=== PATIENT | male | born 1980 | race Caucasian/White ===

== ENCOUNTER 2019-08-04 05:15 | Inpatient (IN) | payer MEDICAID ==
[2019-08-04] VITALS (9 sets, daily range): BP systolic 114–139; BP diastolic 79–102
[~2019-08-04] VITALS: Ht 167.6 cm; Wt 110.1 kg
[2019-08-04] MEDS ORDERED: normal saline 1000ML IV soln IVB ONE ×2 (05:25→06:50)
[2019-08-04] MEDS ORDERED: magnesium 2GM in 50ml NS 50 ML IV ONE (05:30)
[2019-08-04] MEDS ORDERED: diltiazem 5mg/ml 5ml inj. IV ONE ×2 (05:30→05:50)
[2019-08-04] MEDS ORDERED: diltiazem 30mg tablet PO ONE ×2 (05:30→05:50)
[2019-08-04] MEDS ORDERED: LORazepam 2 mg/ml vial IV ONE (05:45)
[2019-08-04] MEDS ORDERED: cloNIDine 0.1 mg tablet PO ONE (05:50)
[2019-08-04 06:03] LABS: BASOPHILS # (AUTO) 0.2 X10'3 (0-0.2); BASOPHILS % (AUTO) 0.9 % (0-1); EOSINOPHILS # (AUTO) 0.4 X10'3 (0-0.9); EOSINOPHILS % (AUTO) 2.2 % (0-6); HEMATOCRIT 47.5 % (42.0-52.0); HEMOGLOBIN 15.9 g/dl (14.0-17.9); LYMPHOCYTES # (AUTO) 3.8 X10'3 (1.1-4.8); LYMPHOCYTES % (AUTO) 19.7 % (21-51); MEAN CORPUSCULAR HEMOGLOBIN 29.6 PG (27.0-31.0); MEAN CORPUSCULAR HGB CONC 33.4 g/dL (33.0-36.5); MEAN CORPUSCULAR VOLUME 88.6 FL (78-98); MEAN PLATELET VOLUME 9.7 FL (7.4-10.4); MONOCYTES # (AUTO) 0.9 X10'3 (0-0.9); MONOCYTES % (AUTO) 4.8 % (2-12); NEUTROPHILS # (AUTO) 13.8 X10'3 (1.8-7.7); NEUTROPHILS % (AUTO) 72.4 % (42-75); PLATELET COUNT 411 X10'3 (140-440); RED BLOOD COUNT 5.37 X10'6 (4.70-6.10); RED CELL DISTRIBUTION WIDTH 13.9 % (11.5-14.5); WHITE BLOOD COUNT 19.1 X10'3 (4.5-11.0)
[2019-08-04 06:22] LABS: URINE AMPHETAMINE SCREEN NEGATIVE (Neg); URINE BARBITUATE SCREEN NEGATIVE (Neg); URINE BENZODIAZEPINES SCREEN NEGATIVE (Neg); URINE CANNABINOID SCREEN POSITIVE (Neg); URINE COCAINE SCREEN NEGATIVE (Neg); URINE METHADONE SCREEN NEGATIVE (Neg); URINE OPIATE SCREEN NEGATIVE (Neg); URINE PHENCYCLIDINE SCREEN NEGATIVE (Neg)
[2019-08-04 06:42] LABS: ALANINE AMINOTRANSFERASE 18 U/L (12-78); ALBUMIN/GLOBULIN RATIO 0.7 (1.1-1.5); ALKALINE PHOSPHATASE 146 IU/L (46-116); ANION GAP 12 (8-16); ASPARTATE AMINO TRANSFERASE 11 U/L (10-37); BILIRUBIN,TOTAL 0.6 MG/DL (0.1-1.0); BLOOD UREA NITROGEN 27 MG/DL (7-18); BUN/CREATININE RATIO 8.5 (5.4-32.0); CALCIUM 8.2 MG/DL (8.5-10.1); CHLORIDE 109 MMOL/L (99-107); CREATININE 3.18 MG/DL (0.60-1.10); GLUCOSE 113 MG/DL (70-104); POTASSIUM 4.4 MMOL/L (3.5-5.1); SODIUM 139 MMOL/L (135-145); TOTAL CARBON DIOXIDE 18.4 MMOL/L (24-32); TOTAL PROTEIN 7.3 G/DL (6.4-8.2); eGFR 22 ML/MIN
[2019-08-04 06:51] LABS: MAGNESIUM 1.8 MG/DL (1.5-2.4)
[2019-08-04] MEDS: piperacillin/tazo 3.375gm/50ml 50 ML IV SCH ×2 (07:06→08:47)
[2019-08-04] MEDS ORDERED: normal saline 1000ML IV soln IV ONE (07:10)
[2019-08-04 08:09] LABS: LIPASE 429 U/L (73-393)
[2019-08-04 09:33] LABS: ETHANOL < 0.010 GM/DL (0.0-0.010)
[2019-08-04] MEDS: normal saline 1000ml 1,000 ML IV SCH ×2 (10:16→20:15)
[2019-08-04] MEDS ORDERED: morphine 2 MG/ML inj. syringe IV PRN (10:20)
[2019-08-04] MEDS ORDERED: magnesium 2GM in 50ml NS 50 ML IV PRN (10:20)
[2019-08-04] MEDS ORDERED: magnesium Cl slow-release 64mg tablet PO PRN (10:20)
[2019-08-04] MEDS ORDERED: magnesium 4gm in 100ml NS 100 ML IV PRN (10:20)
[2019-08-04] MEDS ORDERED: ondansetron/PF 4mg/2ml inj IV PRN (10:20)
[2019-08-04] MEDS ORDERED: potassium Cl 20 mEq SR tablet PO PRN ×2 (10:20)
[2019-08-04] MEDS ORDERED: potassium CL 10mEq/100ml bag 100 ML IV PRN ×2 (10:20)
--- NOTE | 2019-08-04 11:36 | NUR ---
Received patient report from ELVIS Cintron in ER.
--- NOTE | 2019-08-04 11:45 | NUR ---
Patient arrived on unit via gurney. Pt was able to ambulate ad soren to bed. Patient alert and oriented, able to communicate needs, cooperative with care. Denies pain at this time. Vital signs BP 138/104, HR 96, Temp 98.7, SP02 98% on RA. Patient oriented to room and call light. Tele monitor placed. NS at 100ml/hr running per MD order.
[2019-08-04] MEDS ORDERED: HYDR-4069 PO (12:54)
[2019-08-04] MEDS ORDERED: pantoprazole 40 MG vial IV SCH (13:40)
[2019-08-04] MEDS ORDERED: dextrose 50%-water 50ml dispensing syringe IV PRN ×2 (14:20)
[2019-08-04] MEDS: pantoprazole 40 MG vial IV SCH ×2 (14:20→20:10)
[2019-08-04] MEDS ORDERED: MESSAGE TO PHARMACY PO ONE (14:20)
[2019-08-04] MEDS ORDERED: glucagon, human recombinant 1mg kit SUBCUT PRN (14:20)
[2019-08-04] MEDS ORDERED: dextrose ORAL solution 15 GM/59 ML bottle PO PRN ×2 (14:20)
[2019-08-04] MEDS ORDERED: insulin Lispro (HumaLOG) vial - multi-dose SQ SCH (14:20)
--- NOTE | 2019-08-04 14:30 | NUR ---
Per Kris Bill Of Materials Clerk, page sent to Dr. Avalos requesting lipid panel. PAGER ID: [phone] MESSAGE: re [phone] Franko Aviles- Per canceling and cutting control clerk, can lipid panel be ordered for tomorrow? Thanks, Judy x [phone]
[2019-08-04] MEDS: levoFLOXACIN-Levaquin 500mg/D5 100 ML IV SCH (14:38)
--- NOTE | 2019-08-04 14:41 | NUR ---
Malnutrition consult: Pt admit w/ acute pancreatitis hx meth abuse. Pt physical assessment pending, current wt pt stated, no wt hx first admit, and NPO given DX. Nausea/abdominal pain persists per EMR. Lipase slightly elevated; ALFREDO d/w RN regarding lipid panel if MD agreeable given hx and stated wt. Current BMI 39.6 via pt stated wt. Not enough information at this time to determine malnutrition criteria; will monitor for additional malnutrition criteria this admit. Will monitor for PO diet advancement as tolerance as medically indicated. Rec: 1. advance diet as medically indicated to low fat/heart healthy 2. monitor for ONS needs once PO 3. bowel care as needed 4. check lipids if MD agreeable given DX 5. scaled wts Addendum: 08/04/19 at [address] Amended: Links added.
[2019-08-04 15:39] LABS: HEMOGLOBIN A1C 5.5 % (4.5-6.2)
[2019-08-04] MEDS: ipratropium/albuterol 3ml nebule NEB SCH ×2 (15:56→19:47)
[2019-08-04] MEDS ORDERED: OMEP-50 PO (16:55)
[2019-08-04] MEDS ORDERED: NIFE30TA95 PO (16:55)
--- NOTE | 2019-08-04 18:12 | NUR ---
Orientee documentation: I have reviewed and agree with all interventions, assessments performed and documented by ELVIS Abel.
--- NOTE | 2019-08-04 18:43 | NUR ---
Problems reprioritized. Patient report given, questions answered & plan of care reviewed with Abigail RN.
[2019-08-04] MEDS: K and/or MAG REPLACEMENT MC SCH (20:00)
[2019-08-04] MEDS: hydrALAZINE 20mg/ml inj. IV SCH (20:07)
[2019-08-04] MEDS: heparin, porcine 5000 units/ml vial SQ SCH (20:18)
[2019-08-04] MEDS ORDERED: diltiazem-D5W 125mg/125ml 125 ML IV SCH (20:50)
[2019-08-04] MEDS ORDERED: diltiazem-NS 100mg/100ml 100 ML IV SCH (20:55)
[2019-08-04] MEDS: insulin glargine (Lantus) pen - multi-dose SQ SCH (21:22)
[2019-08-05] VITALS (15 sets, daily range): BP systolic 101–173; BP diastolic 59–113
[2019-08-05] MEDS: normal saline 1000ml 1,000 ML IV SCH ×4 (01:00→20:33)
[2019-08-05] MEDS: hydrALAZINE 20mg/ml inj. IV SCH ×3 (02:35→14:37)
[2019-08-05] MEDS: diltiazem-NS 100mg/100ml 100 ML IV SCH ×3 (03:00→19:13)
--- NOTE | 2019-08-05 03:00 | NUR ---
DR SILVERMAN CALLED DUE TO PATIENTS HEART RATE MAINTAINING BETWEEN 140 AND 180. NEW ORDER TO INCREASE CARD GTT FROM 5 TO 10.
[2019-08-05 05:37] LABS: BASOPHILS # (AUTO) 0.1 X10'3 (0-0.2); BASOPHILS % (AUTO) 1.2 % (0-1); EOSINOPHILS # (AUTO) 0.1 X10'3 (0-0.9); EOSINOPHILS % (AUTO) 1.3 % (0-6); HEMATOCRIT 44.3 % (42.0-52.0); HEMOGLOBIN 14.8 g/dl (14.0-17.9); LYMPHOCYTES # (AUTO) 2.3 X10'3 (1.1-4.8); LYMPHOCYTES % (AUTO) 22.3 % (21-51); MEAN CORPUSCULAR HEMOGLOBIN 29.4 PG (27.0-31.0); MEAN CORPUSCULAR HGB CONC 33.4 g/dL (33.0-36.5); MEAN CORPUSCULAR VOLUME 88.1 FL (78-98); MEAN PLATELET VOLUME 9.5 FL (7.4-10.4); MONOCYTES # (AUTO) 0.5 X10'3 (0-0.9); MONOCYTES % (AUTO) 4.3 % (2-12); NEUTROPHILS # (AUTO) 7.4 X10'3 (1.8-7.7); NEUTROPHILS % (AUTO) 70.9 % (42-75); PLATELET COUNT 368 X10'3 (140-440); RED BLOOD COUNT 5.03 X10'6 (4.70-6.10); RED CELL DISTRIBUTION WIDTH 14.1 % (11.5-14.5); WHITE BLOOD COUNT 10.5 X10'3 (4.5-11.0)
[2019-08-05 05:48] LABS: ALBUMIN 2.6 G/DL (3.4-5.0); ANION GAP 12 (8-16); BLOOD UREA NITROGEN 23 MG/DL (7-18); BUN/CREATININE RATIO 7.3 (5.4-32.0); CALCIUM 8.2 MG/DL (8.5-10.1); CHLORIDE 114 MMOL/L (99-107); CREATININE 3.13 MG/DL (0.60-1.10); GLUCOSE 101 MG/DL (70-104); LIPASE 150 U/L (73-393); MAGNESIUM 1.7 MG/DL (1.5-2.4); POTASSIUM 4.5 MMOL/L (3.5-5.1); SODIUM 143 MMOL/L (135-145); TOTAL CARBON DIOXIDE 17.2 MMOL/L (24-32); eGFR 22 ML/MIN
--- NOTE | 2019-08-05 06:56 | NUR ---
Patient in room PCU 3018. I have received report from Abigail RN and had the opportunity to ask questions and assume patient care. Pt's hr trends are in the 130's-140's. Pt. is asymptomatic. Will notify
[2019-08-05] MEDS: ipratropium/albuterol 3ml nebule NEB SCH ×3 (07:06→20:10)
--- NOTE | 2019-08-05 07:21 | NUR ---
PAGER ID: [phone] MESSAGE: [phone] Franko Shea - Assumed care of patient, HR 150's throughout night. HR 150's-160's. Krissy LEAL [phone]
[2019-08-05] MEDS ORDERED: LORazepam 2 mg/ml vial IV ONE (07:30)
--- NOTE | 2019-08-05 07:30 | NUR ---
Received return call from Dr. Avalos, ordering Ativan 1 mg of Ativan one time. Verified twice and reviewed rhythms over the phone. She again stated to administer Ativan 1 mg po one time.
[2019-08-05] MEDS: levoFLOXACIN-Levaquin 500mg/D5 100 ML IV SCH ×2 (07:42→07:50)
[2019-08-05] MEDS: pantoprazole 40 MG vial IV SCH ×2 (07:42→20:24)
[2019-08-05] MEDS: K and/or MAG REPLACEMENT MC SCH ×2 (08:00→20:00)
--- NOTE | 2019-08-05 08:10 | NUR ---
PAGER ID: [phone] MESSAGE: [id number] Alonzo Chavez - Kathy given, HR still trending 150-170's. Would you like to increase Cardizem? Or do an IV push? Krissy LEAL [phone]
--- NOTE | 2019-08-05 08:24 | NUR ---
No return call from Dr. Avalos thus far, HR is not sustaining and he is asymptomatic but it should certainly be addressed. Will page again or potentially call a rapid. Charge nurse/telemetry rn also monitoring patient closely.
[2019-08-05] MEDS ORDERED: metoprolol tartrate 1mg/ml inj IV ONE ×2 (08:30→13:05)
--- NOTE | 2019-08-05 08:31 | NUR ---
Received return phone call from Dr. rajput, she stated because he is sinus tach, we just need to treat the cause. BP and HR including sometimes into the 200's was explained. Received a one time order to administer metoprolol 5 mg IVP.
[2019-08-05] MEDS: heparin, porcine 5000 units/ml vial SQ SCH ×2 (08:44→20:24)
--- NOTE | 2019-08-05 08:47 | NUR ---
IVP metoprolol given, HR trending 115-130's. EKG completed, ST noted. Will continue to monitor closely.
--- NOTE | 2019-08-05 11:15 | NUR ---
MD assessed patient and reviewed rhythm strip. She ordered another STAT EKG.
--- NOTE | 2019-08-05 11:42 | NUR ---
PAGER ID: [phone] MESSAGE: [id number] Franko Shea - BAYG completed. I did not find you in the hospitalist room. Call Krissy LEAL [phone]
--- NOTE | 2019-08-05 12:51 | NUR ---
Dr. Avalos returned call, stated she has to attend a conference. Explained change in rhythm to a-flutter and rate. stated, if HR >130, give another dose of metoprolol 5 mg IV one time. HR is 140's at this time.
--- NOTE | 2019-08-05 13:20 | NUR ---
Another dose of Metoprolol 5 mg IV one time administered. Will continue to monitor patient closely. Pt. stated, "I feel good."
--- NOTE | 2019-08-05 14:49 | NUR ---
Patient is resting comfortably, rate is better controlled. BP currently 125/74. Offers no complaints.
--- NOTE | 2019-08-05 15:15 | NUR ---
EKG reviewed by Dr. Avalos, new orders noted to DC hydralazine. Administer Metoprolol 25 mg po one time now and place order for metoprolol 5 mg IVP q 6 hrs PRN for HR>120.
[2019-08-05] MEDS ORDERED: metoprolol succinate 25mg (24-HOUR) SR. Tablet PO ONE (16:00)
--- NOTE | 2019-08-05 16:02 | NUR ---
PAGER ID: [phone] MESSAGE: [phone] Alonzonadia bautistaj luis, HR trending up again into 150-160's. PO metoprolol given as ordered. IV metoprolol last given at 1300. BRONSON Rey RN [phone]
--- NOTE | 2019-08-05 17:20 | NUR ---
Dr. Avalos returned call stating she got the page and that we just need to continue to monitor him. HR is 120's currently. Pt. is texting on his phone and in no apparent distress. Will continue to monitor closely.
--- NOTE | 2019-08-05 18:25 | NUR ---
Problems reprioritized. Patient report given, questions answered & plan of care reviewed with Rosalia LEAL.
--- NOTE | 2019-08-05 18:25 | NUR ---
Agree with orientee documentation.
--- NOTE | 2019-08-05 18:30 | NUR ---
Patient in room PCU 3018. I have received report from Nitza, and had the opportunity to ask questions and assume patient care.
[2019-08-05] MEDS: lactobacillus rhamnosus 10,000 MMU CELLS/CAPSULE PO SCH (20:24)
[2019-08-05] MEDS: insulin glargine (Lantus) pen - multi-dose SQ SCH (21:00)
--- NOTE | 2019-08-05 23:15 | NUR ---
patient is resting comfortably. Not on any distress. Heart is fluctuating in 100's to 110. He is asymptomatic.
[2019-08-05] MEDS: metoprolol tartrate 1mg/ml inj IV PRN (23:44)
[2019-08-06 02:00] VITALS: BP 136/86
[2019-08-06] MEDS: normal saline 1000ml 1,000 ML IV SCH (03:21)
[2019-08-06] MEDS: diltiazem-NS 100mg/100ml 100 ML IV SCH ×3 (04:11→22:51)
[2019-08-06 05:20] LABS: BASOPHILS # (AUTO) 0.1 X10'3 (0-0.2); BASOPHILS % (AUTO) 1.2 % (0-1); EOSINOPHILS # (AUTO) 0.2 X10'3 (0-0.9); EOSINOPHILS % (AUTO) 1.9 % (0-6); HEMATOCRIT 43.3 % (42.0-52.0); HEMOGLOBIN 14.7 g/dl (14.0-17.9); LYMPHOCYTES # (AUTO) 2.4 X10'3 (1.1-4.8); LYMPHOCYTES % (AUTO) 25.8 % (21-51); MEAN CORPUSCULAR HEMOGLOBIN 30.2 PG (27.0-31.0); MEAN CORPUSCULAR HGB CONC 33.9 g/dL (33.0-36.5); MEAN PLATELET VOLUME 9.8 FL (7.4-10.4); MONOCYTES # (AUTO) 0.4 X10'3 (0-0.9); MONOCYTES % (AUTO) 4.2 % (2-12); NEUTROPHILS # (AUTO) 6.1 X10'3 (1.8-7.7); NEUTROPHILS % (AUTO) 66.9 % (42-75); PLATELET COUNT 331 X10'3 (140-440); RED BLOOD COUNT 4.87 X10'6 (4.70-6.10); RED CELL DISTRIBUTION WIDTH 14.3 % (11.5-14.5); WHITE BLOOD COUNT 9.2 X10'3 (4.5-11.0)
[2019-08-06 05:56] LABS: ALBUMIN 2.5 G/DL (3.4-5.0); ANION GAP 11 (8-16); BLOOD UREA NITROGEN 26 MG/DL (7-18); BUN/CREATININE RATIO 8.2 (5.4-32.0); CALCIUM 8.4 MG/DL (8.5-10.1); CHLORIDE 110 MMOL/L (99-107); CREATININE 3.16 MG/DL (0.60-1.10); GLUCOSE 99 MG/DL (70-104); MAGNESIUM 1.6 MG/DL (1.5-2.4); POTASSIUM 4.6 MMOL/L (3.5-5.1); SODIUM 138 MMOL/L (135-145); TOTAL CARBON DIOXIDE 16.6 MMOL/L (24-32); eGFR 22 ML/MIN
--- NOTE | 2019-08-06 06:16 | NUR ---
Problems reprioritized. Patient report given YogeshRN, questions answered & plan of care reviewed with .
--- NOTE | 2019-08-06 06:40 | NUR ---
Patient in room PCU 3018. I have received report from ELVIS Cardoso and had the opportunity to ask questions and assume patient care. Patient awake in bed. No complaints at this time. All immediate needs met.
--- NOTE | 2019-08-06 06:43 | NUR ---
Patient in room PCU 3018. I have received report from Janae LEAL and had the opportunity to ask questions and assume patient care.
[2019-08-06 07:00] VITALS: BP 121/94
[2019-08-06] MEDS: pantoprazole 40 MG vial IV SCH (07:53)
[2019-08-06] MEDS: lactobacillus rhamnosus 10,000 MMU CELLS/CAPSULE PO SCH ×2 (07:54→19:55)
[2019-08-06] MEDS: heparin, porcine 5000 units/ml vial SQ SCH ×2 (07:54→19:55)
[2019-08-06] MEDS ORDERED: levoFLOXACIN-Levaquin 250mg/D5 100 ML IV SCH (08:00)
[2019-08-06] MEDS: K and/or MAG REPLACEMENT MC SCH ×2 (08:49→20:00)
[2019-08-06] MEDS: ipratropium/albuterol 3ml nebule NEB SCH ×3 (09:00→19:46)
[2019-08-06 11:00] VITALS: BP 127/90
--- NOTE | 2019-08-06 15:09 | NUR ---
Paged Dr. Avalos, Re: Shabbir Hodges, [id number]. Patient is experiencing some difficulty breathing. BP: 140/93, P: 103, O2:99%RA. May we have a prn for Atnxiety? Daniela RN [phone]
--- NOTE | 2019-08-06 15:37 | NUR ---
Dr. Avalos responded to page, with order of Ativan IV push 1MG Q6H prn for anxiety
[2019-08-06] MEDS ORDERED: metoprolol succinate 25mg (24-HOUR) SR. Tablet PO SCH (15:40)
[2019-08-06] MEDS: LORazepam 2 mg/ml vial IV PRN (15:46)
--- NOTE | 2019-08-06 17:41 | NUR ---
Patients BP and HR was 140/98, 130/85 with heart rates 103 to 140s. After patient received Ativan, patient went to sleep, BP 112/80, HR 87, O2 98%RA. Patient expressed anxiety due to environmental changes and health changes. Patient states that he takes anxiety medications to help with anxiety. also stated this as well.
--- NOTE | 2019-08-06 17:55 | NUR ---
Dr. Avalos responded to paged about medications. Order is to start Cardizem 30mg po on 08-06 0800, due to patients blood pressure events. Continue to monitor patients BP and HR
[2019-08-06 18:00] VITALS: BP 130/94
--- NOTE | 2019-08-06 18:12 | NUR ---
Problems reprioritized. Patient report given, questions answered & plan of care reviewed with Janae LEAL. Patient in stable condition with stable vital signs able to transfer care.
--- NOTE | 2019-08-06 18:15 | NUR ---
Problems reprioritized. Patient report given, questions answered & plan of care reviewed with Janae LEAL. Patient stable at transfer of care.
--- NOTE | 2019-08-06 18:16 | NUR ---
Orientee documentation: I have reviewed and agree with all interventions, assessments performed and documented by ELVIS Suarez. Orientee documentation: I have reviewed and agree with all interventions, assessments performed and documented by ELVIS Suarez.
--- NOTE | 2019-08-06 18:17 | NUR ---
Patient in room PCU 3018. I have received report from Daniela GONZALEZ, and had the opportunity to ask questions and assume patient care.
[2019-08-06] MEDS: pantoprazole 40mg Tablet.DR PO SCH (19:55)
[2019-08-06] MEDS ORDERED: diltiazem 30mg tablet PO SCH (20:00)
[2019-08-06] MEDS: insulin glargine (Lantus) pen - multi-dose SQ SCH (21:00)
[2019-08-06 22:00] VITALS: BP 120/88
[2019-08-07] VITALS (7 sets, daily range): BP systolic 112–139; BP diastolic 64–97
[2019-08-07] MEDS: LORazepam 2 mg/ml vial IV PRN (00:10)
--- NOTE | 2019-08-07 00:22 | NUR ---
Patient was restless and asked for his lorazipam (ativan). HR is in 100's to 110's. Asymptomatic.
[2019-08-07 05:31] LABS: BASOPHILS # (AUTO) 0.1 X10'3 (0-0.2); BASOPHILS % (AUTO) 1.1 % (0-1); EOSINOPHILS # (AUTO) 0.2 X10'3 (0-0.9); EOSINOPHILS % (AUTO) 2.2 % (0-6); HEMATOCRIT 45.2 % (42.0-52.0); LYMPHOCYTES # (AUTO) 2.5 X10'3 (1.1-4.8); LYMPHOCYTES % (AUTO) 22.8 % (21-51); MEAN CORPUSCULAR HEMOGLOBIN 29.6 PG (27.0-31.0); MEAN CORPUSCULAR HGB CONC 33.2 g/dL (33.0-36.5); MEAN CORPUSCULAR VOLUME 89.1 FL (78-98); MEAN PLATELET VOLUME 9.9 FL (7.4-10.4); MONOCYTES # (AUTO) 0.5 X10'3 (0-0.9); MONOCYTES % (AUTO) 4.5 % (2-12); NEUTROPHILS # (AUTO) 7.6 X10'3 (1.8-7.7); NEUTROPHILS % (AUTO) 69.4 % (42-75); PLATELET COUNT 406 X10'3 (140-440); RED BLOOD COUNT 5.08 X10'6 (4.70-6.10); RED CELL DISTRIBUTION WIDTH 14.2 % (11.5-14.5); WHITE BLOOD COUNT 10.9 X10'3 (4.5-11.0)
[2019-08-07 05:37] LABS: ALBUMIN 2.7 G/DL (3.4-5.0); ANION GAP 11 (8-16); BLOOD UREA NITROGEN 27 MG/DL (7-18); BUN/CREATININE RATIO 7.9 (5.4-32.0); CALCIUM 8.2 MG/DL (8.5-10.1); CHLORIDE 108 MMOL/L (99-107); GLUCOSE 94 MG/DL (70-104); MAGNESIUM 1.6 MG/DL (1.5-2.4); POTASSIUM 4.5 MMOL/L (3.5-5.1); SODIUM 137 MMOL/L (135-145); TOTAL CARBON DIOXIDE 18.2 MMOL/L (24-32); eGFR 20 ML/MIN
--- NOTE | 2019-08-07 06:00 | NUR ---
Patient in room PCU 3018. I have received report from Janae LEAL and had the opportunity to ask questions and assume patient care.
--- NOTE | 2019-08-07 06:23 | NUR ---
Patient report given to uJan A, questions answered & plan of care reviewed with .
[2019-08-07] MEDS: lactobacillus rhamnosus 10,000 MMU CELLS/CAPSULE PO SCH ×2 (07:25→19:15)
[2019-08-07] MEDS: pantoprazole 40mg Tablet.DR PO SCH ×2 (07:26→19:15)
[2019-08-07] MEDS: diltiazem 30mg tablet PO SCH ×3 (07:26→19:15)
[2019-08-07] MEDS: levoFLOXACIN 250mg tablet PO SCH (07:26)
[2019-08-07] MEDS: heparin, porcine 5000 units/ml vial SQ SCH ×2 (07:27→19:16)
[2019-08-07] MEDS: K and/or MAG REPLACEMENT MC SCH ×2 (07:33→19:25)
[2019-08-07] MEDS: ipratropium/albuterol 3ml nebule NEB SCH ×3 (08:19→20:17)
[2019-08-07] MEDS: metoprolol tartrate 1mg/ml inj IV PRN (08:55)
[2019-08-07] MEDS: diltiazem-NS 100mg/100ml 100 ML IV SCH ×2 (10:09→23:04)
--- NOTE | 2019-08-07 12:42 | NUR ---
Reassessment: Patient's diet has been advanced to CHO controlled and pt documented with 100% PO intake since advancement. D/w dietary to send double protein BID for satiety. Lipase from 08/04 WNL. Creatinine remains elevated, pt likely has medical renal disease per MD note. LBM 08/05 per I&O. Will continue to follow and make recommendations as appropriate. Rec: 1. diet change to low fat/heart healthy 2. double meat BIDLD 3. monitor renal labs and need for renal diet 4. bowel care as needed 5. check lipids if MD agreeable given DX 6. scaled wts Addendum: 08/07/19 at [address] Amended: Links added.
[2019-08-07] MEDS: metoprolol succinate 25mg (24-HOUR) SR. Tablet PO SCH (15:00)
[2019-08-07] MEDS: sodium bicarbonate (8.4%) inj. 75 MEQ in dextrose 5% water 500ml 500 ML IV SCH ×3 (17:22→23:38)
--- NOTE | 2019-08-07 18:15 | NUR ---
Patient in room PCU 3018. I have received report from ELVIS Uribe and had the opportunity to ask questions and assume patient care.
--- NOTE | 2019-08-07 18:48 | NUR ---
Problems reprioritized. Patient report given, questions answered & plan of care reviewed with Danitza LEAL.
[2019-08-07] MEDS: insulin glargine (Lantus) pen - multi-dose SQ SCH (21:00)
[2019-08-08] VITALS (10 sets, daily range): BP systolic 101–135; BP diastolic 74–98
[2019-08-08] MEDS: diltiazem 30mg tablet PO SCH (02:06)
[2019-08-08] MEDS: sodium bicarbonate (8.4%) inj. 75 MEQ in dextrose 5% water 500ml 500 ML IV SCH ×2 (04:23→09:39)
[2019-08-08 05:16] LABS: BASOPHILS # (AUTO) 0.2 X10'3 (0-0.2); BASOPHILS % (AUTO) 1.8 % (0-1); EOSINOPHILS # (AUTO) 0.2 X10'3 (0-0.9); EOSINOPHILS % (AUTO) 2.4 % (0-6); HEMATOCRIT 42.8 % (42.0-52.0); HEMOGLOBIN 14.5 g/dl (14.0-17.9); LYMPHOCYTES # (AUTO) 2.5 X10'3 (1.1-4.8); LYMPHOCYTES % (AUTO) 25.4 % (21-51); MEAN CORPUSCULAR HEMOGLOBIN 29.7 PG (27.0-31.0); MEAN CORPUSCULAR HGB CONC 33.9 g/dL (33.0-36.5); MEAN CORPUSCULAR VOLUME 87.7 FL (78-98); MEAN PLATELET VOLUME 9.6 FL (7.4-10.4); MONOCYTES # (AUTO) 0.6 X10'3 (0-0.9); MONOCYTES % (AUTO) 6.5 % (2-12); NEUTROPHILS # (AUTO) 6.2 X10'3 (1.8-7.7); NEUTROPHILS % (AUTO) 63.9 % (42-75); PLATELET COUNT 378 X10'3 (140-440); RED BLOOD COUNT 4.88 X10'6 (4.70-6.10); RED CELL DISTRIBUTION WIDTH 14.1 % (11.5-14.5); WHITE BLOOD COUNT 9.7 X10'3 (4.5-11.0)
[2019-08-08 05:28] LABS: ALBUMIN 2.5 G/DL (3.4-5.0); ANION GAP 11 (8-16); BLOOD UREA NITROGEN 33 MG/DL (7-18); BUN/CREATININE RATIO 8.5 (5.4-32.0); CALCIUM 7.7 MG/DL (8.5-10.1); CHLORIDE 106 MMOL/L (99-107); CREATININE 3.88 MG/DL (0.60-1.10); GLUCOSE 110 MG/DL (70-104); MAGNESIUM 1.6 MG/DL (1.5-2.4); SODIUM 138 MMOL/L (135-145); TOTAL CARBON DIOXIDE 20.6 MMOL/L (24-32); eGFR 17 ML/MIN
--- NOTE | 2019-08-08 06:18 | NUR ---
Problems reprioritized. Patient report given, questions answered & plan of care reviewed with ELVIS Fernandez.
--- NOTE | 2019-08-08 06:28 | NUR ---
Patient in room PCU 3018. I have received report from ELVIS Bosch and had the opportunity to ask questions and assume patient care.
[2019-08-08] MEDS: ipratropium/albuterol 3ml nebule NEB SCH ×2 (07:56→14:28)
[2019-08-08] MEDS: lactobacillus rhamnosus 10,000 MMU CELLS/CAPSULE PO SCH ×2 (08:07→19:33)
[2019-08-08] MEDS: levoFLOXACIN 250mg tablet PO SCH (08:07)
[2019-08-08] MEDS: pantoprazole 40mg Tablet.DR PO SCH ×2 (08:07→19:33)
[2019-08-08] MEDS: metoprolol succinate 25mg (24-HOUR) SR. Tablet PO SCH (08:07)
[2019-08-08] MEDS: heparin, porcine 5000 units/ml vial SQ SCH ×2 (08:08→19:33)
[2019-08-08] MEDS: K and/or MAG REPLACEMENT MC SCH ×2 (08:55→19:29)
[2019-08-08] MEDS: diltiazem-NS 100mg/100ml 100 ML IV SCH (09:31)
--- NOTE | 2019-08-08 13:23 | NUR ---
PAGER ID: [phone] MESSAGE: [id number]. pt. Franko Aviles. to clarify, pt. is already on Bicarb at 125 mls/hr. do you still want the NS at 150 mls/hr? and you wanted to d/c the Cardizem? thank you. Rebecca [phone]
[2019-08-08] MEDS: normal saline 1000ml 1,000 ML IV SCH ×2 (13:32→19:30)
--- NOTE | 2019-08-08 14:53 | NUR ---
PAGER ID: [phone] MESSAGE: [id number]. pt. Franko Aviles. pt. HR has been between 130-150 the last 10 min. pt. asymptomatic. Cardibretm ip was d/c 4 hrs ago. please advise. Rebecca [phone]
--- NOTE | 2019-08-08 17:33 | NUR ---
PAGER ID: [phone] MESSAGE: [id number] [id number]. pt. Franko Aviles. pt. is adamant about talking to you. thank you. Rebecca, [phone]
[2019-08-08] MEDS ORDERED: normal saline 1000ml 1,000 ML IV ONE (17:45)
--- NOTE | 2019-08-08 18:29 | NUR ---
Problems reprioritized. Patient report given, questions answered & plan of care reviewed with ELVIS Jorgensen.
[2019-08-08] MEDS: insulin glargine (Lantus) pen - multi-dose SQ SCH (21:00)
[2019-08-09 01:08] LABS: CLARITY,URINE CLEAR (Clear); COLOR,URINE YELLOW (Yellow); GLUCOSE, URINE NEGATIVE (Neg); KETONES,URINE NEGATIVE (Neg); LEUKOCYTE ESTERASE ,URINE NEGATIVE (Neg); NITRITES, URINE NEGATIVE (Neg); OCCULT BLOOD,URINE SMALL (Neg); PH,URINE 6.5 (4.8-8.0); PROTEIN,URINE 100 mg/dl (Neg); UROBILINOGEN,URINE 0.2 E.U/dL (0.2-1.0)
[2019-08-09 01:27] LABS: UA COLLECTION TYPE CLN CATCH MIDSTREAM
[2019-08-09 01:28] LABS: BACTERIA,URINE FEW /HPF (Neg); RBC,URINE 0-2 /HPF (0-2); SQUAMOUS EPITHELIAL CELL,UR FEW /LPF (FEW); WBC,URINE 0-4 /HPF (0-4)
[2019-08-09 01:41] LABS: TOTAL PROTEIN,URINE RANDOM 108.3 MG/DL
[2019-08-09 02:00] VITALS: BP 138/78
[2019-08-09] MEDS: normal saline 1000ml 1,000 ML IV SCH ×4 (02:18→21:34)
[2019-08-09 06:00] VITALS: BP 100/51
[2019-08-09 06:04] LABS: BASOPHILS # (AUTO) 0.1 X10'3 (0-0.2); BASOPHILS % (AUTO) 0.8 % (0-1); EOSINOPHILS # (AUTO) 0.2 X10'3 (0-0.9); EOSINOPHILS % (AUTO) 2.2 % (0-6); HEMATOCRIT 42.7 % (42.0-52.0); HEMOGLOBIN 14.1 g/dl (14.0-17.9); LYMPHOCYTES # (AUTO) 3.2 X10'3 (1.1-4.8); LYMPHOCYTES % (AUTO) 28.6 % (21-51); MEAN CORPUSCULAR HEMOGLOBIN 29.1 PG (27.0-31.0); MEAN CORPUSCULAR VOLUME 88.4 FL (78-98); MEAN PLATELET VOLUME 9.8 FL (7.4-10.4); MONOCYTES # (AUTO) 0.7 X10'3 (0-0.9); MONOCYTES % (AUTO) 6.1 % (2-12); NEUTROPHILS % (AUTO) 62.3 % (42-75); PLATELET COUNT 374 X10'3 (140-440); RED BLOOD COUNT 4.84 X10'6 (4.70-6.10); RED CELL DISTRIBUTION WIDTH 14.2 % (11.5-14.5); WHITE BLOOD COUNT 11.2 X10'3 (4.5-11.0)
--- NOTE | 2019-08-09 06:18 | NUR ---
Patient in room PCU 3018. I have received report from My LEAL and had the opportunity to ask questions and assume patient care.
[2019-08-09 06:21] LABS: ALBUMIN 2.5 G/DL (3.4-5.0); ANION GAP 9 (8-16); BLOOD UREA NITROGEN 41 MG/DL (7-18); BUN/CREATININE RATIO 10.7 (5.4-32.0); CALCIUM 7.5 MG/DL (8.5-10.1); CHLORIDE 107 MMOL/L (99-107); CREATININE 3.83 MG/DL (0.60-1.10); GLUCOSE 76 MG/DL (70-104); MAGNESIUM 1.5 MG/DL (1.5-2.4); POTASSIUM 4.3 MMOL/L (3.5-5.1); SODIUM 139 MMOL/L (135-145); TOTAL CARBON DIOXIDE 22.8 MMOL/L (24-32); eGFR 18 ML/MIN
--- NOTE | 2019-08-09 06:22 | NUR ---
Problems reprioritized. Patient report given, questions answered & plan of care reviewed with ELVIS Anna.
[2019-08-09] MEDS: heparin, porcine 5000 units/ml vial SQ SCH ×2 (07:35→21:36)
[2019-08-09] MEDS: lactobacillus rhamnosus 10,000 MMU CELLS/CAPSULE PO SCH ×2 (07:36→21:36)
[2019-08-09] MEDS: pantoprazole 40mg Tablet.DR PO SCH ×2 (07:36→21:37)
[2019-08-09] MEDS: levoFLOXACIN 250mg tablet PO SCH (07:36)
[2019-08-09] MEDS: metoprolol succinate 25mg (24-HOUR) SR. Tablet PO SCH (07:36)
[2019-08-09] MEDS: K and/or MAG REPLACEMENT MC SCH ×2 (08:00→19:30)
[2019-08-09 11:00] VITALS: BP 100/51
[2019-08-09 15:00] VITALS: BP 101/86
[2019-08-09 18:15] VITALS: BP 121/102
--- NOTE | 2019-08-09 18:15 | NUR ---
Patient in room PCU 3018. I have received report from ELVIS DUMONT and had the opportunity to ask questions and assume patient care.
--- NOTE | 2019-08-09 18:18 | NUR ---
Problems reprioritized. Patient report given, questions answered & plan of care reviewed with Melissa LEAL.
[2019-08-09] MEDS: insulin glargine (Lantus) pen - multi-dose SQ SCH (21:00)
[2019-08-09 22:30] VITALS: BP 149/98
[2019-08-10] MEDS: normal saline 1000ml 1,000 ML IV SCH ×5 (00:24→21:21)
[2019-08-10 03:45] VITALS: BP 124/88
[2019-08-10] MEDS: metoprolol tartrate 1mg/ml inj IV PRN ×2 (05:04→20:34)
--- NOTE | 2019-08-10 06:26 | NUR ---
Patient in room PCU 3018A. I have received report from Melissa LEAL and had the opportunity to ask questions and assume patient care.
[2019-08-10 06:30] VITALS: BP 123/95
--- NOTE | 2019-08-10 07:02 | NUR ---
Problems reprioritized. Patient report given, questions answered & plan of care reviewed with ANANT Campbell RN.
[2019-08-10 07:28] LABS: BASOPHILS # (AUTO) 0.1 X10'3 (0-0.2); BASOPHILS % (AUTO) 0.6 % (0-1); EOSINOPHILS # (AUTO) 0.4 X10'3 (0-0.9); EOSINOPHILS % (AUTO) 3.6 % (0-6); HEMATOCRIT 46.7 % (42.0-52.0); HEMOGLOBIN 15.3 g/dl (14.0-17.9); LYMPHOCYTES # (AUTO) 4.1 X10'3 (1.1-4.8); MEAN CORPUSCULAR HEMOGLOBIN 29.1 PG (27.0-31.0); MEAN CORPUSCULAR HGB CONC 32.8 g/dL (33.0-36.5); MEAN CORPUSCULAR VOLUME 88.8 FL (78-98); MEAN PLATELET VOLUME 10.6 FL (7.4-10.4); MONOCYTES # (AUTO) 0.7 X10'3 (0-0.9); MONOCYTES % (AUTO) 5.9 % (2-12); NEUTROPHILS # (AUTO) 5.9 X10'3 (1.8-7.7); NEUTROPHILS % (AUTO) 52.9 % (42-75); PLATELET COUNT 414 X10'3 (140-440); RED BLOOD COUNT 5.26 X10'6 (4.70-6.10); WHITE BLOOD COUNT 11.1 X10'3 (4.5-11.0)
[2019-08-10] MEDS: lactobacillus rhamnosus 10,000 MMU CELLS/CAPSULE PO SCH ×2 (07:28→20:36)
[2019-08-10] MEDS: heparin, porcine 5000 units/ml vial SQ SCH ×2 (07:28→20:42)
[2019-08-10] MEDS: pantoprazole 40mg Tablet.DR PO SCH ×2 (07:28→20:36)
[2019-08-10] MEDS: levoFLOXACIN 250mg tablet PO SCH (07:28)
[2019-08-10] MEDS: metoprolol succinate 25mg (24-HOUR) SR. Tablet PO SCH (07:28)
[2019-08-10 07:58] LABS: ALANINE AMINOTRANSFERASE 37 U/L (12-78); ALBUMIN 2.6 G/DL (3.4-5.0); ALBUMIN/GLOBULIN RATIO 0.7 (1.1-1.5); ALKALINE PHOSPHATASE 107 IU/L (46-116); ANION GAP 15 (8-16); ASPARTATE AMINO TRANSFERASE 26 U/L (10-37); BILIRUBIN,TOTAL 0.4 MG/DL (0.1-1.0); BLOOD UREA NITROGEN 45 MG/DL (7-18); CALCIUM 7.8 MG/DL (8.5-10.1); CHLORIDE 108 MMOL/L (99-107); CREATININE 3.45 MG/DL (0.60-1.10); GLUCOSE 80 MG/DL (70-104); SODIUM 138 MMOL/L (135-145); TOTAL CARBON DIOXIDE 15.5 MMOL/L (24-32); TOTAL PROTEIN 6.4 G/DL (6.4-8.2); eGFR 20 ML/MIN
[2019-08-10 07:59] LABS: POTASSIUM 5.1 MMOL/L (3.5-5.1)
[2019-08-10] MEDS: K and/or MAG REPLACEMENT MC SCH ×2 (08:00→20:00)
[2019-08-10 11:00] VITALS: BP 125/104
--- NOTE | 2019-08-10 13:42 | NUR ---
Reassessment: Pt PO 100% avg meals w/ double proteins BID meeting needs. LBM 5/2. No nutrition concerns at this time. Will continue to monitor. Rec: 1. advance diet as medically indicated to low fat/heart healthy 2. double meat BIDLD 3. bowel care as needed 4. check lipids if MD agreeable given DX 5. scaled wts Addendum: 08/10/19 at [address] Amended: Links added.
[2019-08-10 15:00] VITALS: BP 114/95
--- NOTE | 2019-08-10 16:03 | NUR ---
yadi MELO PAGER ID: [phone] MESSAGE: Andree paez [phone]. Re Melissa Aviles [id number]. Patient has not met protocol from [facility] checks since admission and blood sugars remain well controlled. Can we D/C blood sugar checks?
[2019-08-10 17:03] LABS: TOTAL PROTEIN,URINE RANDOM 154.2 MG/DL
[2019-08-10] MEDS: citric acid/sodium citrate 15ml oral solution PO SCH ×2 (17:16→20:36)
--- NOTE | 2019-08-10 18:30 | NUR ---
Patient in room PCU 3018. I have received report from Andree Wyatt and had the opportunity to ask questions and assume patient care.
--- NOTE | 2019-08-10 18:39 | NUR ---
Problems reprioritized. Patient report given, questions answered & plan of care reviewed with Seu LEAL.
[2019-08-10 19:00] VITALS: BP 150/116
[2019-08-10] MEDS: insulin glargine (Lantus) pen - multi-dose SQ SCH (21:00)
[2019-08-10 23:00] VITALS: BP 122/72
--- NOTE | 2019-08-10 23:12 | NUR ---
Patients father Ernie called to check in as patient is not returning his calls or texts. Explained that earlier patient had requested hospital phone to be disconnected as didn't feel like talking to anyone. When questioned about this, patient stated that he is just fed -up as he has been in the hospital for almost a week now, and several times staff have said, you will be going home tomorrow, but obviously that is not the case. Emphasized about how frustrating it is that patients can't have their loved ones visiting right now. Patient does have his cell phone which is charged at the bedside if he wants to call family etc. Scarlet called earlier in shift to talk with this nurse asking about the new medication started to day. Scarlet said that pt. probably down as it is their anniversary tomorrow and he did not want to be in the hospital for it. Will continue to check in on patient and address any concerns.
[2019-08-11 02:00] VITALS: BP 158/118
[2019-08-11] MEDS: normal saline 1000ml 1,000 ML IV SCH ×3 (02:37→09:30)
[2019-08-11] MEDS: LORazepam 2 mg/ml vial IV PRN (03:03)
[2019-08-11] MEDS: metoprolol tartrate 1mg/ml inj IV PRN (05:12)
[2019-08-11 06:21] LABS: MAGNESIUM 1.5 MG/DL (1.5-2.4)
[2019-08-11 06:30] VITALS: BP 148/98
--- NOTE | 2019-08-11 06:40 | NUR ---
Report given to Andree LEAL. Discussed that patient had a very varied fluctuating HR during noc shift and was given prn labetalol.
--- NOTE | 2019-08-11 06:40 | NUR ---
Patient in room PCU 3018. I have received report from Sue LEAL and had the opportunity to ask questions and assume patient care.
[2019-08-11 07:16] LABS: ALANINE AMINOTRANSFERASE 37 U/L (12-78); ALBUMIN 2.5 G/DL (3.4-5.0); ALBUMIN/GLOBULIN RATIO 0.7 (1.1-1.5); ALKALINE PHOSPHATASE 101 IU/L (46-116); ANION GAP 13 (8-16); ASPARTATE AMINO TRANSFERASE 28 U/L (10-37); BILIRUBIN,TOTAL 0.3 MG/DL (0.1-1.0); BLOOD UREA NITROGEN 45 MG/DL (7-18); BUN/CREATININE RATIO 12.6 (5.4-32.0); CALCIUM 7.8 MG/DL (8.5-10.1); CHLORIDE 108 MMOL/L (99-107); CREATININE 3.56 MG/DL (0.60-1.10); GLUCOSE 65 MG/DL (70-104); POTASSIUM 4.8 MMOL/L (3.5-5.1); SODIUM 140 MMOL/L (135-145); TOTAL CARBON DIOXIDE 19.2 MMOL/L (24-32); TOTAL PROTEIN 6.1 G/DL (6.4-8.2); eGFR 19 ML/MIN
[2019-08-11] MEDS: levoFLOXACIN 250mg tablet PO SCH (07:30)
[2019-08-11] MEDS: pantoprazole 40mg Tablet.DR PO SCH ×2 (07:30→20:47)
[2019-08-11] MEDS: metoprolol succinate 25mg (24-HOUR) SR. Tablet PO SCH (07:30)
[2019-08-11] MEDS: citric acid/sodium citrate 15ml oral solution PO SCH ×4 (07:30→20:47)
[2019-08-11] MEDS: lactobacillus rhamnosus 10,000 MMU CELLS/CAPSULE PO SCH ×2 (07:30→20:46)
[2019-08-11 07:31] LABS: BASOPHILS # (AUTO) 0.1 X10'3 (0-0.2); BASOPHILS % (AUTO) 1.2 % (0-1); EOSINOPHILS # (AUTO) 0.3 X10'3 (0-0.9); EOSINOPHILS % (AUTO) 3.4 % (0-6); HEMATOCRIT 44.1 % (42.0-52.0); HEMOGLOBIN 14.3 g/dl (14.0-17.9); LYMPHOCYTES # (AUTO) 3.3 X10'3 (1.1-4.8); LYMPHOCYTES % (AUTO) 36.3 % (21-51); MEAN CORPUSCULAR HEMOGLOBIN 28.9 PG (27.0-31.0); MEAN CORPUSCULAR HGB CONC 32.5 g/dL (33.0-36.5); MEAN CORPUSCULAR VOLUME 89.1 FL (78-98); MEAN PLATELET VOLUME 10.4 FL (7.4-10.4); MONOCYTES # (AUTO) 0.6 X10'3 (0-0.9); NEUTROPHILS # (AUTO) 4.9 X10'3 (1.8-7.7); NEUTROPHILS % (AUTO) 53.1 % (42-75); PLATELET COUNT 385 X10'3 (140-440); RED BLOOD COUNT 4.95 X10'6 (4.70-6.10); RED CELL DISTRIBUTION WIDTH 13.9 % (11.5-14.5); WHITE BLOOD COUNT 9.2 X10'3 (4.5-11.0)
[2019-08-11] MEDS: heparin, porcine 5000 units/ml vial SQ SCH ×2 (07:31→20:47)
[2019-08-11] MEDS: K and/or MAG REPLACEMENT MC SCH ×2 (08:00→20:00)
[2019-08-11] MEDS ORDERED: metoprolol succinate 25mg (24-HOUR) SR. Tablet PO ONE (10:35)
[2019-08-11 11:00] VITALS: BP 114/79
--- NOTE | 2019-08-11 11:42 | NUR ---
PAGER ID: [phone] MESSAGE: [id number] Franko Aviles. Cardiology consulted. increased metropolol to 100mg and added aspirin FYI. Rocio LEAL
[2019-08-11 15:00] VITALS: BP 139/101
[2019-08-11] MEDS ORDERED: normal saline 1000ml 1,000 ML IV SCH (17:30)
--- NOTE | 2019-08-11 17:31 | NUR ---
Dr. Avalos called and stated to decrease the fluids to 50ml/hr and is hopeful for discharge tomorrow.
[2019-08-11 18:00] VITALS: BP 138/110
--- NOTE | 2019-08-11 18:26 | NUR ---
Patient in room PCU 3018. I have received report from Andree LEAL and had the opportunity to ask questions and assume patient care.
--- NOTE | 2019-08-11 18:31 | NUR ---
Problems reprioritized. Patient report given, questions answered & plan of care reviewed with Sue LEAL.
--- NOTE | 2019-08-11 18:35 | NUR ---
New hire documentation: I have reviewed and agree with all interventions, assessments performed and documented by Rocio LEAL .
[2019-08-11] MEDS: insulin glargine (Lantus) pen - multi-dose SQ SCH (21:40)
[2019-08-11 22:30] VITALS: BP 119/78
[2019-08-12 02:30] VITALS: BP 132/75
[2019-08-12 06:00] VITALS: BP 126/84
[2019-08-12 06:13] LABS: BASOPHILS % (AUTO) 0.2 % (0-1); EOSINOPHILS # (AUTO) 0.2 X10'3 (0-0.9); EOSINOPHILS % (AUTO) 2.8 % (0-6); HEMATOCRIT 42.9 % (42.0-52.0); HEMOGLOBIN 14.4 g/dl (14.0-17.9); LYMPHOCYTES # (AUTO) 3.7 X10'3 (1.1-4.8); LYMPHOCYTES % (AUTO) 42.9 % (21-51); MEAN CORPUSCULAR HEMOGLOBIN 29.4 PG (27.0-31.0); MEAN CORPUSCULAR HGB CONC 33.5 g/dL (33.0-36.5); MEAN CORPUSCULAR VOLUME 87.8 FL (78-98); MEAN PLATELET VOLUME 10.2 FL (7.4-10.4); MONOCYTES # (AUTO) 0.5 X10'3 (0-0.9); NEUTROPHILS # (AUTO) 4.1 X10'3 (1.8-7.7); NEUTROPHILS % (AUTO) 48.1 % (42-75); PLATELET COUNT 380 X10'3 (140-440); RED BLOOD COUNT 4.89 X10'6 (4.70-6.10); RED CELL DISTRIBUTION WIDTH 14.1 % (11.5-14.5); WHITE BLOOD COUNT 8.6 X10'3 (4.5-11.0)
--- NOTE | 2019-08-12 06:15 | NUR ---
Problems reprioritized. Patient report given, questions answered & plan of care reviewed with Andree LEAL.
[2019-08-12 06:41] LABS: ALANINE AMINOTRANSFERASE 54 U/L (12-78); ALBUMIN 2.6 G/DL (3.4-5.0); ALBUMIN/GLOBULIN RATIO 0.7 (1.1-1.5); ALKALINE PHOSPHATASE 97 IU/L (46-116); ANION GAP 13 (8-16); ASPARTATE AMINO TRANSFERASE 37 U/L (10-37); BILIRUBIN,TOTAL 0.3 MG/DL (0.1-1.0); BLOOD UREA NITROGEN 43 MG/DL (7-18); CALCIUM 7.9 MG/DL (8.5-10.1); CHLORIDE 108 MMOL/L (99-107); CREATININE 3.58 MG/DL (0.60-1.10); GLUCOSE 73 MG/DL (70-104); POTASSIUM 4.8 MMOL/L (3.5-5.1); SODIUM 139 MMOL/L (135-145); TOTAL CARBON DIOXIDE 18.3 MMOL/L (24-32); TOTAL PROTEIN 6.2 G/DL (6.4-8.2); eGFR 19 ML/MIN
--- NOTE | 2019-08-12 07:03 | NUR ---
Patient in room PCU 3018. I have received report from Sue LEAL and had the opportunity to ask questions and assume patient care.
[2019-08-12] MEDS: levoFLOXACIN 250mg tablet PO SCH (07:20)
[2019-08-12] MEDS: citric acid/sodium citrate 15ml oral solution PO SCH (07:20)
[2019-08-12] MEDS: pantoprazole 40mg Tablet.DR PO SCH (07:20)
[2019-08-12] MEDS: lactobacillus rhamnosus 10,000 MMU CELLS/CAPSULE PO SCH (07:21)
[2019-08-12] MEDS: heparin, porcine 5000 units/ml vial SQ SCH (07:21)
[2019-08-12] MEDS ORDERED: aspirin 81mg tablet.DR PO SCH (08:00)
[2019-08-12] MEDS ORDERED: metoprolol succinate 25mg (24-HOUR) SR. Tablet PO SCH ×2 (08:00)
[2019-08-12] MEDS: K and/or MAG REPLACEMENT MC SCH (08:00)
--- NOTE | 2019-08-12 08:18 | NUR ---
Gave 100mg metropolol under dose for once daily. After it was given the new order for BID came up. Acknowledged and will give second dose at specified time. Non-admin morning dose for new order since already given.
[2019-08-12] MEDS ORDERED: METO-395 PO (08:52)
[2019-08-12] MEDS ORDERED: ASPI-1071 PO (08:52)
--- NOTE | 2019-08-12 10:35 | NUR ---
Per MD patient stable for discharge home. Discharge packet provided and reviewed. Education given and new prescriptions will be called in to [facility] in [place]. Will make follow appointment with PCP and has appointment set up with Nephrology. IV and tele monitor removed. All belongings sent with patient. Patient escorted with staff off floor and with spouse per private vehicle.
== END 2019-08-12 10:20 | disposition home or self-care (01) | DRG 282 ==
LOC: ER 05:16 → ED HOLD 10:16 → PCU 3S 11:45
PROVIDERS: ADMIT Internal Medicine; ATTEND Internal Medicine
DX: K85.90 Acute pancreatitis without necrosis or infection, unspecified (principal); N17.0 Acute kidney failure with tubular necrosis; E11.22 Type 2 diabetes mellitus with diabetic chronic kidney disease; E87.2 Acidosis; I47.1 Supraventricular tachycardia; E87.8 Other disorders of electrolyte and fluid balance, not elsewhere classified; E86.0 Dehydration; I48.0 Paroxysmal atrial fibrillation; N18.3 Chronic kidney disease, stage 3 (moderate); E66.9 Obesity, unspecified; F15.10 Other stimulant abuse, uncomplicated; K21.9 Gastro-esophageal reflux disease without esophagitis; I12.9 Hypertensive chronic kidney disease with stage 1 through stage 4 chronic kidney disease, or unspecified chronic kidney disease; Z91.19 Patient's noncompliance with other medical treatment and regimen; Z88.1 Allergy status to other antibiotic agents; Z79.82 Long term (current) use of aspirin; Z88.8 Allergy status to other drugs, medicaments and biological substances; Z87.11 Personal history of peptic ulcer disease; Z68.39 Body mass index [BMI] 39.0-39.9, adult
CPT/HCPCS: 36415; 71045; 74176; 76775; 80048; 80053; 80305; 80320; 81001; 82570; 82948; 83036; 83605; 83690; 83735; 83880; 84133; 84145; 84156; 84300; 84443; 84484; 85025; 87040; 87081; 93005; 93306; 94640; 94760; 96361; 96365; 96366; 96375; 96376; 99291; C9113; G0378; J0360; J1644; J1815; J1956; J2060; J2270; J2405; J2543; J3475; J3490; J7030

== ENCOUNTER 2022-03-04 17:18 | Inpatient (IN) | payer MEDICAID ==
[~2022-03-04] VITALS: Ht 167.6 cm; Wt 96.9 kg
[~2022-03-04 17:18] MED LIST: ASPI-1071 PO; HYDR-4069 PO; METO-395 PO; OMEP20CA16 PO
[2022-03-04 22:03] LABS: BASOPHILS # (AUTO) 0.1 X10'3 (0-0.2); BASOPHILS % (AUTO) 0.8 % (0-1); EOSINOPHILS % (AUTO) 0.2 % (0-6); HEMATOCRIT 38.1 % (42.0-52.0); HEMOGLOBIN 12.6 g/dl (14.0-17.9); LYMPHOCYTES # (AUTO) 2.2 X10'3 (1.1-4.8); LYMPHOCYTES % (AUTO) 12.4 % (21-51); MEAN CORPUSCULAR HEMOGLOBIN 29.7 PG (27.0-31.0); MEAN CORPUSCULAR HGB CONC 32.9 g/dL (33.0-36.5); MEAN CORPUSCULAR VOLUME 90.1 FL (78-98); MEAN PLATELET VOLUME 8.5 FL (7.4-10.4); MONOCYTES # (AUTO) 1.4 X10'3 (0-0.9); MONOCYTES % (AUTO) 8.2 % (2-12); NEUTROPHILS # (AUTO) 13.8 X10'3 (1.8-7.7); NEUTROPHILS % (AUTO) 78.4 % (42-75); PLATELET COUNT 516 X10'3 (140-440); RED BLOOD COUNT 4.24 X10'6 (4.70-6.10); RED CELL DISTRIBUTION WIDTH 14.9 % (11.5-14.5); WHITE BLOOD COUNT 17.6 X10'3 (4.5-11.0)
[2022-03-04 22:14] LABS: ALBUMIN 2.9 G/DL (3.4-5.0); ANION GAP 16 (8-16); BLOOD UREA NITROGEN 59 MG/DL (7-18); BUN/CREATININE RATIO 10.5 (5.4-32.0); CHLORIDE 105 MMOL/L (99-107); CREATININE 5.61 MG/DL (0.60-1.10); GLUCOSE 132 MG/DL (70-104); SODIUM 134 MMOL/L (135-145); eGFR 11 ML/MIN
[2022-03-04 22:18] LABS: POTASSIUM 6.1 MMOL/L (3.5-5.1); TOTAL CARBON DIOXIDE 13.2 MMOL/L (24-32)
[2022-03-04 22:19] LABS: CALCIUM 5.8 MG/DL (8.5-10.1)
[2022-03-04] MEDS ORDERED: insulin regular, human 10 units/0.1 ml syringe IV ONE (23:00)
[2022-03-04] MEDS ORDERED: normal saline 1000ML IV soln IVB ONE (23:00)
[2022-03-04] MEDS ORDERED: sodium bicarbonate (8.4%) 1 mEq/ml syringe IV ONE (23:00)
[2022-03-04] MEDS ORDERED: dextrose 50%-water 50ml dispensing syringe IV ONE (23:00)
[2022-03-04] MEDS ORDERED: LIDOcaine 2% 10ml TOPICAL JELLY (Urojet) TP ONE (23:07)
[2022-03-04] MEDS ORDERED: calcium gluconate inj. 1 GM in normal saline 50ml IV soln 40 ML IV ONE (23:30)
[2022-03-04] MEDS ORDERED: calcium gluconate inj. 1 GM in normal saline 100ml IV soln 90 ML IV ONE (23:30)
[2022-03-04] MEDS ORDERED: LIDOcaine 1% 30ml preserv. free vial IJ ONE (23:45)
[2022-03-04] MEDS ORDERED: acetaminophen 325mg tablet PO ONE (23:50)
[2022-03-05] MEDS ORDERED: piperacillin/tazo 3.375gm/50ml 50 ML IV ONE (00:10)
[2022-03-05] MEDS ORDERED: vancomycin/NS 1 GM ADD-VANTAGE 250 ML IV ONE (00:10)
[2022-03-05 00:26] LABS: ALANINE AMINOTRANSFERASE 20 U/L (12-78); ALBUMIN 2.9 G/DL (3.4-5.0); ALBUMIN/GLOBULIN RATIO 0.6 (1.1-1.5); ALKALINE PHOSPHATASE 123 IU/L (46-116); ANION GAP 18 (8-16); ASPARTATE AMINO TRANSFERASE 14 U/L (10-37); BILIRUBIN,TOTAL 0.4 MG/DL (0.1-1.0); BLOOD UREA NITROGEN 60 MG/DL (7-18); BUN/CREATININE RATIO 10.6 (5.4-32.0); C-REACTIVE PROTEIN 4.71 MG/DL (0.0-0.5); CHLORIDE 104 MMOL/L (99-107); CREATININE 5.67 MG/DL (0.60-1.10); GLUCOSE 119 MG/DL (70-104); MAGNESIUM 1.1 MG/DL (1.5-2.4); SODIUM 136 MMOL/L (135-145); TOTAL PROTEIN 8.1 G/DL (6.4-8.2); eGFR 11 ML/MIN
[2022-03-05 00:28] LABS: POTASSIUM 6.4 MMOL/L (3.5-5.1); TOTAL CARBON DIOXIDE 14.5 MMOL/L (24-32)
[2022-03-05] MEDS ORDERED: dextrose 50%-water 50ml dispensing syringe IV ONE ×2 (00:50)
[2022-03-05] MEDS ORDERED: sodium polystyrene sulfonate 15gm/60ml oral suspension PO ONE (00:50)
[2022-03-05] MEDS ORDERED: acetaminophen 325mg tablet PO PRN ×2 (00:55)
[2022-03-05] MEDS ORDERED: morphine 2 MG/ML inj. syringe IV PRN ×2 (00:55)
[2022-03-05] MEDS: normal saline 1000ml 1,000 ML IV SCH ×3 (00:55→20:18)
[2022-03-05] MEDS ORDERED: ondansetron/PF 4mg/2ml inj IV PRN (00:55)
[2022-03-05] MEDS ORDERED: HYDROcodone/acetaminophen 5mg/325mg tablet PO PRN (00:55)
[2022-03-05 01:43] LABS: GLUCOSE,SYNOVIAL FLUID 137 MG/DL; TOTAL PROTEIN,SYNOVIAL FLUID 2.6 GM/DL
[2022-03-05] MEDS ORDERED: AMLO2.5T2 PO (02:01)
[2022-03-05 02:58] LABS: CLARITY,URINE CLEAR (Clear); COLOR,URINE STRAW (Yellow); GLUCOSE, URINE 100 mg/dl (Neg); KETONES,URINE NEGATIVE (Neg); LEUKOCYTE ESTERASE ,URINE NEGATIVE (Neg); NITRITES, URINE NEGATIVE (Neg); OCCULT BLOOD,URINE SMALL (Neg); PH,URINE 5.5 (4.8-8.0); PROTEIN,URINE 100 mg/dl (Neg); UROBILINOGEN,URINE 0.2 E.U/dL (0.2-1.0)
[2022-03-05 03:31] LABS: APPEARANCE,SYNOVIAL FLUID CLOUDY; COLOR,SYNOVIAL FLUID YELLOW
[2022-03-05 03:35] LABS: UA COLLECTION TYPE NON-SPECIFIED
[2022-03-05 03:40] LABS: BACTERIA,URINE NONE SEEN /HPF (Neg); MUCUS STRANDS NONE SEEN /LPF (Neg); RBC,URINE 0-2 /HPF (0-2); SQUAMOUS EPITHELIAL CELL,UR FEW /LPF (FEW); WBC,URINE 0-4 /HPF (0-4)
[2022-03-05 03:43] LABS: SYN WBC 39500 /CU MM (0-200)
[2022-03-05 03:44] LABS: MONOCYTES,SYNOVIAL FLUID 1 % (0-0); NEUTROPHILS,SYNOVIAL FLUID 99 % (0-25)
[2022-03-05 05:20] LABS: ALANINE AMINOTRANSFERASE 16 U/L (12-78); ALBUMIN 2.3 G/DL (3.4-5.0); ALBUMIN/GLOBULIN RATIO 0.5 (1.1-1.5); ALKALINE PHOSPHATASE 103 IU/L (46-116); ANION GAP 18 (8-16); ASPARTATE AMINO TRANSFERASE 14 U/L (10-37); BILIRUBIN,TOTAL 0.5 MG/DL (0.1-1.0); CHLORIDE 106 MMOL/L (99-107); CREATININE 5.38 MG/DL (0.60-1.10); GLUCOSE 146 MG/DL (70-104); POTASSIUM 5.3 MMOL/L (3.5-5.1); SODIUM 138 MMOL/L (135-145); TOTAL PROTEIN 6.9 G/DL (6.4-8.2); eGFR 12 ML/MIN
[2022-03-05] MEDS ORDERED: normal saline 1000ML IV soln IVB ONE (05:45)
[2022-03-05 05:51] LABS: CRYSTAL ID, SYN FLD URIC ACID; SYNOVIAL FLUID CRYSTALS QT MODERATE
[2022-03-05 06:23] LABS: BLOOD UREA NITROGEN 57 MG/DL (7-18); BUN/CREATININE RATIO 10.6 (5.4-32.0)
[2022-03-05 06:26] LABS: TOTAL CARBON DIOXIDE 14.4 MMOL/L (24-32)
[2022-03-05 06:27] LABS: CALCIUM 5.8 MG/DL (8.5-10.1)
--- NOTE | 2022-03-05 07:08 | NUR ---
PAGER ID: [phone] MESSAGE: Ernst Aviles in ER bed 13, critical labs CO2 14.4, CA 5.8. Linda LEAL
--- NOTE | 2022-03-05 07:30 | NUR ---
after swabbing pt, pt started swearing at this RN. pt states "You mother fucker, you don't need to do no science experiment" Infomred pt again of test and need for test.
[2022-03-05] MEDS: heparin, porcine 5000 units/ml vial SQ SCH ×2 (08:02→20:18)
[2022-03-05] MEDS ORDERED: CALCIUM GLUC 1gm/50ml NACL,iso 50 ML IV ONE (08:05)
--- NOTE | 2022-03-05 08:57 | NUR ---
pt grabbed belonings and walked out of emergency dept. gait steady
[2022-03-05] MEDS ORDERED: METO200T49 PO (12:16)
[2022-03-05] MEDS ORDERED: ASPI-1071 PO (12:16)
[2022-03-05] MEDS ORDERED: VANCOmycin 1250MG/NS 250ml Bag 250 ML IV SCH (13:00)
[2022-03-05] MEDS: HYDROcodone/acetaminophen 10/325mg tab PO PRN ×2 (17:25→22:07)
[2022-03-05] MEDS: colchicine 0.6mg tablet PO SCH (18:17)
--- NOTE | 2022-03-05 19:35 | NUR ---
pt report called to floor nurse. pt tx by p-medic to room 1493
[2022-03-05 19:50] VITALS: BP 144/103
[2022-03-05] MEDS ORDERED: temazepam 15mg capsule PO PRN (21:00)
[2022-03-05 22:00] VITALS: BP 156/94
[2022-03-06] MEDS: VANCOMYCIN LEVEL IV SCH (03:00)
[2022-03-06 03:25] LABS: ALANINE AMINOTRANSFERASE 19 U/L (12-78); ALBUMIN 2.1 G/DL (3.4-5.0); ALBUMIN/GLOBULIN RATIO 0.4 (1.1-1.5); ALKALINE PHOSPHATASE 97 IU/L (46-116); ANION GAP 15 (8-16); ASPARTATE AMINO TRANSFERASE 14 U/L (10-37); BILIRUBIN,TOTAL 0.3 MG/DL (0.1-1.0); BLOOD UREA NITROGEN 58 MG/DL (7-18); BUN/CREATININE RATIO 11.1 (5.4-32.0); CHLORIDE 105 MMOL/L (99-107); CREATININE 5.22 MG/DL (0.60-1.10); GLUCOSE 95 MG/DL (70-104); POTASSIUM 4.7 MMOL/L (3.5-5.1); SODIUM 136 MMOL/L (135-145); TOTAL CARBON DIOXIDE 16.5 MMOL/L (24-32); TOTAL PROTEIN 6.8 G/DL (6.4-8.2); VANCOMYCIN,RANDOM 8.4 UG/ML; eGFR 12 ML/MIN
--- NOTE | 2022-03-06 03:44 | NUR ---
notified via phone of pts critical calcium result of 6.0. No new orders at this time.
[2022-03-06] MEDS: HYDROcodone/acetaminophen 10/325mg tab PO PRN ×4 (04:57→22:55)
[2022-03-06 06:00] VITALS: BP 139/95
--- NOTE | 2022-03-06 06:50 | NUR ---
Problems reprioritized. Patient report given, questions answered & plan of care reviewed with Emely LEAL.
[2022-03-06] MEDS: normal saline 1000ml 1,000 ML IV SCH ×2 (06:55→15:24)
[2022-03-06] MEDS ORDERED: vancomycin/NS 1 GM ADD-VANTAGE 250 ML IV PRN (08:00)
--- NOTE | 2022-03-06 08:19 | NUR ---
Initial: Pt admitted w/ acute on chronic kidney disease, R knee swelling, and sepsis per EMR. Currently on Renal diet pending PO intake. Recommend liberalizing to REGULAR diet at this time; will monitor need for additional protein based on PO intake. [facility] 03/04. Skin intact per RN skin assessment. Will continue to monitor. Recs: 1. Liberalize to Regular diet 2. Monitor need for ONS/additional protein 3. Bowel care per rx 4. Scaled wts Addendum: 03/06/22 at [address] Amended: Links added.
[2022-03-06] MEDS: heparin, porcine 5000 units/ml vial SQ SCH ×2 (08:23→19:19)
[2022-03-06 08:59] LABS: BASOPHILS # (AUTO) 0.1 X10'3 (0-0.2); BASOPHILS % (AUTO) 1.2 % (0-1); EOSINOPHILS # (AUTO) 0.2 X10'3 (0-0.9); EOSINOPHILS % (AUTO) 1.5 % (0-6); HEMATOCRIT 34.2 % (42.0-52.0); HEMOGLOBIN 10.9 g/dl (14.0-17.9); LYMPHOCYTES % (AUTO) 25.2 % (21-51); MEAN CORPUSCULAR HEMOGLOBIN 28.6 PG (27.0-31.0); MEAN CORPUSCULAR HGB CONC 31.9 g/dL (33.0-36.5); MEAN CORPUSCULAR VOLUME 89.7 FL (78-98); MEAN PLATELET VOLUME 8.9 FL (7.4-10.4); MONOCYTES % (AUTO) 8.3 % (2-12); NEUTROPHILS # (AUTO) 7.6 X10'3 (1.8-7.7); NEUTROPHILS % (AUTO) 63.8 % (42-75); PLATELET COUNT 444 X10'3 (140-440); RED BLOOD COUNT 3.81 X10'6 (4.70-6.10); WHITE BLOOD COUNT 11.9 X10'3 (4.5-11.0)
[2022-03-06] MEDS ORDERED: cephalexin 500mg capsule PO SCH (09:05)
--- NOTE | 2022-03-06 09:20 | NUR ---
Orders from Dr Arrieta: d./c deidre, d/c keflex, low purine diet, add 24 hour uric acid to 24 hour urine, d/c f/c once 24 hour urine complete - stand void TID with bladder scan pre/post void BID. Add allopurinol 200mg Daily start 03/07,
[2022-03-06 09:40] LABS: ALANINE AMINOTRANSFERASE 15 U/L (12-78); ALBUMIN 2.1 G/DL (3.4-5.0); ALBUMIN/GLOBULIN RATIO 0.5 (1.1-1.5); ALKALINE PHOSPHATASE 89 IU/L (46-116); ASPARTATE AMINO TRANSFERASE 19 U/L (10-37); BILIRUBIN,TOTAL 0.3 MG/DL (0.1-1.0); BLOOD UREA NITROGEN 59 MG/DL (7-18); BUN/CREATININE RATIO 11.4 (5.4-32.0); CHLORIDE 105 MMOL/L (99-107); CREATININE 5.19 MG/DL (0.60-1.10); GLUCOSE 127 MG/DL (70-104); POTASSIUM 4.8 MMOL/L (3.5-5.1); SODIUM 134 MMOL/L (135-145); TOTAL PROTEIN 6.7 G/DL (6.4-8.2); eGFR 12 ML/MIN
[2022-03-06 09:48] LABS: ANION GAP 14 (8-16); CALCIUM 5.8 MG/DL (8.5-10.1); TOTAL CARBON DIOXIDE 14.6 MMOL/L (24-32)
--- NOTE | 2022-03-06 09:55 | NUR ---
Paged Dr Avalos PAGER ID: [phone] MESSAGE: [id number]. Traci. Critical Co2 14.6, Ca 5.8, anion ga 14. Mg from 03/04 1.1. FYI. Han [phone]
[2022-03-06 11:00] VITALS: BP 145/98
[2022-03-06] MEDS: colchicine 0.6mg tablet PO SCH (11:21)
--- NOTE | 2022-03-06 13:31 | NUR ---
Paged Dr Avalos PAGER ID: [phone] MESSAGE: [id number]. Traci. Bp 167/114. NO PRNs. Med rec needs to be done please. Emely Joseph [phone]
[2022-03-06] MEDS: hydrALAZINE 20mg/ml inj. IV SCH ×2 (13:47→19:19)
[2022-03-06 15:00] VITALS: BP 152/103
[2022-03-06] MEDS: calcium carbonate 500mg tablet PO SCH (17:22)
--- NOTE | 2022-03-06 17:31 | NUR ---
PAGER ID: [phone] MESSAGE: [id number]./ Traci. Pls rev med rec. Emely Joseph [phone]
[2022-03-06 18:00] VITALS: BP 150/103
[2022-03-06 21:58] LABS: UREA NITROGEN 24HR,URINE 12.2 GM/24HR (7-20)
[2022-03-06 22:20] LABS: CREATININE 5.19 MG/DL (0.60-1.10)
[2022-03-06 22:35] VITALS: BP 174/105
[2022-03-06] MEDS: amLODIPine 2.5mg tablet PO SCH (22:55)
[2022-03-06] MEDS: aspirin 81mg, enteric-coated 1 TAB TABLET.DR PO SCH (22:55)
--- NOTE | 2022-03-06 22:59 | NUR ---
Pre void bladder scan 427ml. Pt stood to urinate per MD Arrieta request. Urine output 500ml. PVR 5ML.
[2022-03-07] MEDS: normal saline 1000ml 1,000 ML IV SCH ×3 (01:55→22:42)
[2022-03-07] MEDS: hydrALAZINE 20mg/ml inj. IV SCH ×2 (01:55→07:50)
[2022-03-07 02:00] VITALS: BP 150/105
[2022-03-07] MEDS: VANCOMYCIN LEVEL IV SCH (03:00)
[2022-03-07] MEDS: HYDROcodone/acetaminophen 10/325mg tab PO PRN ×4 (03:09→23:34)
[2022-03-07 06:00] VITALS: BP 145/98
[2022-03-07 06:42] LABS: BASOPHILS # (AUTO) 0.2 X10'3 (0-0.2); BASOPHILS % (AUTO) 1.2 % (0-1); EOSINOPHILS # (AUTO) 0.1 X10'3 (0-0.9); EOSINOPHILS % (AUTO) 0.8 % (0-6); LYMPHOCYTES # (AUTO) 1.9 X10'3 (1.1-4.8); LYMPHOCYTES % (AUTO) 13.8 % (21-51); MEAN CORPUSCULAR HGB CONC 33.3 g/dL (33.0-36.5); MEAN PLATELET VOLUME 9.1 FL (7.4-10.4); MONOCYTES # (AUTO) 1.1 X10'3 (0-0.9); MONOCYTES % (AUTO) 8.4 % (2-12); NEUTROPHILS # (AUTO) 10.2 X10'3 (1.8-7.7); NEUTROPHILS % (AUTO) 75.8 % (42-75); PLATELET COUNT 489 X10'3 (140-440); RED CELL DISTRIBUTION WIDTH 14.6 % (11.5-14.5); WHITE BLOOD COUNT 13.5 X10'3 (4.5-11.0)
[2022-03-07 07:10] LABS: ALANINE AMINOTRANSFERASE 19 U/L (12-78); ALBUMIN 2.4 G/DL (3.4-5.0); ALBUMIN/GLOBULIN RATIO 0.5 (1.1-1.5); ALKALINE PHOSPHATASE 107 IU/L (46-116); ANION GAP 15 (8-16); ASPARTATE AMINO TRANSFERASE 18 U/L (10-37); BILIRUBIN,TOTAL 0.4 MG/DL (0.1-1.0); BLOOD UREA NITROGEN 57 MG/DL (7-18); BUN/CREATININE RATIO 11.1 (5.4-32.0); CALCIUM 6.2 MG/DL (8.5-10.1); CHLORIDE 103 MMOL/L (99-107); CREATININE 5.15 MG/DL (0.60-1.10); GLUCOSE 92 MG/DL (70-104); PHOSPHORUS 5.1 MG/DL (2.3-4.5); POTASSIUM 4.7 MMOL/L (3.5-5.1); SODIUM 132 MMOL/L (135-145); TOTAL PROTEIN 7.5 G/DL (6.4-8.2); VANCOMYCIN,RANDOM 5.1 UG/ML; eGFR 12 ML/MIN
[2022-03-07 07:19] LABS: TOTAL CARBON DIOXIDE 14.1 MMOL/L (24-32)
--- NOTE | 2022-03-07 07:25 | NUR ---
PAGER ID: [phone] MESSAGE: [id number]./ Critical Co2 14.1. Thanks, Emely [phone]
[2022-03-07] MEDS: heparin, porcine 5000 units/ml vial SQ SCH ×2 (07:49→19:18)
[2022-03-07] MEDS: metoprolol succinate 25mg (24-HOUR) SR. Tablet PO SCH (07:49)
[2022-03-07] MEDS: calcium carbonate 500mg tablet PO SCH ×3 (07:49→18:06)
[2022-03-07] MEDS: colchicine 0.6mg tablet PO SCH (07:49)
[2022-03-07] MEDS: aspirin 81mg, enteric-coated 1 TAB TABLET.DR PO SCH (07:49)
[2022-03-07] MEDS: amLODIPine 2.5mg tablet PO SCH (08:00)
[2022-03-07] MEDS ORDERED: allopurinol 100mg tablet PO SCH (08:30)
[2022-03-07] MEDS: tamsulosin 0.4mg capsule PO SCH ×2 (09:30→19:18)
[2022-03-07 10:20] LABS: ALANINE AMINOTRANSFERASE 14 U/L (12-78); ALBUMIN 2.2 G/DL (3.4-5.0); ALBUMIN/GLOBULIN RATIO 0.5 (1.1-1.5); ALKALINE PHOSPHATASE 102 IU/L (46-116); ANION GAP 16 (8-16); ASPARTATE AMINO TRANSFERASE 12 U/L (10-37); BILIRUBIN,TOTAL 0.3 MG/DL (0.1-1.0); BLOOD UREA NITROGEN 57 MG/DL (7-18); BUN/CREATININE RATIO 11.2 (5.4-32.0); CALCIUM 6.4 MG/DL (8.5-10.1); CHLORIDE 104 MMOL/L (99-107); CREATININE 5.08 MG/DL (0.60-1.10); GLUCOSE 137 MG/DL (70-104); POTASSIUM 4.7 MMOL/L (3.5-5.1); SODIUM 135 MMOL/L (135-145); eGFR 12 ML/MIN
[2022-03-07 10:27] LABS: TOTAL CARBON DIOXIDE 14.6 MMOL/L (24-32)
--- NOTE | 2022-03-07 10:28 | NUR ---
PAGER ID: [phone] MESSAGE: [id number]. Traci. Pt req maalox for heart burn and critical co2 14.6, up from 14.1. Emely Joseph [phone]
[2022-03-07 11:00] VITALS: BP 153/99
[2022-03-07] MEDS: pantoprazole 40mg Tablet.DR PO SCH (11:20)
[2022-03-07 13:17] LABS: COMPLEMENT C3, SERUM 127 mg/dL (82-167); COMPLEMENT C4, SERUM 36 mg/dL (12-38); HEPATITIS C ANTIBODY <0.1 s/co ratio (0.0-0.9)
[2022-03-07 14:00] VITALS: BP 158/98
[2022-03-07] MEDS: hyDRALAzine 10mg tablet PO SCH ×2 (15:55→23:33)
[2022-03-07 18:00] VITALS: BP 141/82
[2022-03-07 22:00] VITALS: BP 145/95
[2022-03-08 02:00] VITALS: BP 142/94
[2022-03-08 06:19] LABS: BASOPHILS # (AUTO) 0.1 X10'3 (0-0.2); BASOPHILS % (AUTO) 0.8 % (0-1); EOSINOPHILS # (AUTO) 0.2 X10'3 (0-0.9); HEMOGLOBIN 11.4 g/dl (14.0-17.9); LYMPHOCYTES # (AUTO) 3.1 X10'3 (1.1-4.8); LYMPHOCYTES % (AUTO) 27.7 % (21-51); MEAN CORPUSCULAR HEMOGLOBIN 29.8 PG (27.0-31.0); MEAN CORPUSCULAR HGB CONC 33.4 g/dL (33.0-36.5); MEAN CORPUSCULAR VOLUME 89.1 FL (78-98); MEAN PLATELET VOLUME 9.1 FL (7.4-10.4); MONOCYTES # (AUTO) 1.1 X10'3 (0-0.9); MONOCYTES % (AUTO) 10.2 % (2-12); NEUTROPHILS # (AUTO) 6.6 X10'3 (1.8-7.7); NEUTROPHILS % (AUTO) 59.3 % (42-75); PLATELET COUNT 490 X10'3 (140-440); RED BLOOD COUNT 3.81 X10'6 (4.70-6.10); RED CELL DISTRIBUTION WIDTH 14.6 % (11.5-14.5); WHITE BLOOD COUNT 11.1 X10'3 (4.5-11.0)
[2022-03-08 06:37] LABS: ALANINE AMINOTRANSFERASE 17 U/L (12-78); ALBUMIN 2.2 G/DL (3.4-5.0); ALBUMIN/GLOBULIN RATIO 0.5 (1.1-1.5); ALKALINE PHOSPHATASE 99 IU/L (46-116); ANION GAP 15 (8-16); ASPARTATE AMINO TRANSFERASE 11 U/L (10-37); BILIRUBIN,TOTAL 0.4 MG/DL (0.1-1.0); BLOOD UREA NITROGEN 57 MG/DL (7-18); BUN/CREATININE RATIO 11.4 (5.4-32.0); CALCIUM 6.5 MG/DL (8.5-10.1); CHLORIDE 106 MMOL/L (99-107); GLUCOSE 81 MG/DL (70-104); SODIUM 136 MMOL/L (135-145); TOTAL CARBON DIOXIDE 15.4 MMOL/L (24-32); eGFR 13 ML/MIN
--- NOTE | 2022-03-08 06:37 | NUR ---
Patient in room PCU 3023. I have received report from Gabi LEAL and had the opportunity to ask questions and assume patient care.
[2022-03-08 07:10] VITALS: BP 141/96
[2022-03-08] MEDS: hyDRALAzine 10mg tablet PO SCH (07:47)
[2022-03-08] MEDS: tamsulosin 0.4mg capsule PO SCH (07:47)
[2022-03-08] MEDS: pantoprazole 40mg Tablet.DR PO SCH (07:48)
[2022-03-08] MEDS: metoprolol succinate 25mg (24-HOUR) SR. Tablet PO SCH (07:48)
[2022-03-08] MEDS: amLODIPine 2.5mg tablet PO SCH (07:48)
[2022-03-08] MEDS: colchicine 0.6mg tablet PO SCH (07:48)
[2022-03-08] MEDS: aspirin 81mg, enteric-coated 1 TAB TABLET.DR PO SCH (07:48)
[2022-03-08] MEDS: calcium carbonate 500mg tablet PO SCH ×2 (07:48→12:17)
[2022-03-08] MEDS: heparin, porcine 5000 units/ml vial SQ SCH (07:53)
[2022-03-08] MEDS: normal saline 1000ml 1,000 ML IV SCH (07:59)
[2022-03-08] MEDS ORDERED: allopurinol 100mg tablet PO SCH (08:00)
[2022-03-08 09:55] LABS: ALANINE AMINOTRANSFERASE 15 U/L (12-78); ALBUMIN 2.1 G/DL (3.4-5.0); ALBUMIN/GLOBULIN RATIO 0.5 (1.1-1.5); ALKALINE PHOSPHATASE 96 IU/L (46-116); ANION GAP 18 (8-16); ASPARTATE AMINO TRANSFERASE 11 U/L (10-37); BILIRUBIN,TOTAL 0.3 MG/DL (0.1-1.0); BLOOD UREA NITROGEN 55 MG/DL (7-18); CALCIUM 6.6 MG/DL (8.5-10.1); CHLORIDE 104 MMOL/L (99-107); CREATININE 4.99 MG/DL (0.60-1.10); GLUCOSE 125 MG/DL (70-104); SODIUM 136 MMOL/L (135-145); TOTAL PROTEIN 6.7 G/DL (6.4-8.2); eGFR 13 ML/MIN
--- NOTE | 2022-03-08 10:07 | NUR ---
PAGER ID: [phone] MESSAGE: [id number] Franko Shea Critical Co2 14.0. Was 15.4 this morning. Lindsey DUQUE [phone].
[2022-03-08] MEDS ORDERED: ALLO100T25 PO (10:24)
[2022-03-08] MEDS ORDERED: COL0.6T PO (10:24)
[2022-03-08] MEDS ORDERED: BICITRA PO (10:24)
[2022-03-08] MEDS ORDERED: PANT40TA54 PO (10:24)
[2022-03-08 10:50] VITALS: BP 132/88
--- NOTE | 2022-03-08 10:51 | NUR ---
Bladder scanned patient. Bladder scan before void is 720 mL. Patient was able to void 710 mL. Bladder scan after was 23 mL.
--- NOTE | 2022-03-08 11:49 | NUR ---
MESSAGE: Shabbir Treviño D. in room 3020n has dc instructions from Dr Arrieta, would you like pt dc'd home? Can you finalize new meds, Thanks Cookie LEAL
--- NOTE | 2022-03-08 11:51 | NUR ---
Dr Garg returned page, he not ready to dc pt, report to Cookie LEAL
[2022-03-08] MEDS: HYDROcodone/acetaminophen 10/325mg tab PO PRN (12:22)
[2022-03-08] MEDS ORDERED: tamsulosin capsule PO (12:48)
--- NOTE | 2022-03-08 13:23 | NUR ---
PAGER ID: [phone] MESSAGE: [id number] Eliud Shea. The new meds for discharge won't let me finalize. They say pending. Lindsey DUQUE x [phone]
--- NOTE | 2022-03-08 13:43 | NUR ---
Nutrition consult re: renal and low purine education. Pt seen at bedside with SO present, provided with written and verbal renal and low purine nutrition therapy educations with list of K and Phos content in food. Per SO pt to f/u with PCP and advertising teacher after discharge for further management. All questions answered at this time. RD contact information provided and pt/SO encouraged to reach out if needed. Pt eating well, documented with mostly 100% PO intake. LBM 03/07. Pt pending discharge per EMR/pt/SO. No nutrition intervention implemented at this time. Will continue to follow. Recs: 1. Liberalize to regular diet if electrolytes WNL; obtain new serum phos/mag 2. Monitor need for ONS/additional protein 3. Bowel care per rx 4. Weekly scaled weights Addendum: 03/08/22 at [address] Amended: Links added.
--- NOTE | 2022-03-08 14:21 | NUR ---
Nurse calling medications into [facility] pharmacy in [facility]. Medications are: allopurinol 100 mg tab Q48 hours for 14 days, Citric acid 30 mL BID for 30days, Colchicine 0.6 mg tab Q day for 30 days, Protonix 40 mg tab Q day for 30 days, Tamsulosin 0.4 mg cap BID for 30 day.
--- NOTE | 2022-03-08 14:53 | NUR ---
Patient discharged IV and tele box removed. Discharge instructions gone over and patient's questions answered. Patient accompanied out by nurse and left with via private vehicle. New RX called into [facility] in [place].
[2022-03-08] MEDS ORDERED: COLC0.6T72 PO (16:28)
[2022-03-08] MEDS ORDERED: ALLO100T PO (16:28)
== END 2022-03-08 14:50 | disposition home or self-care (01) | DRG 351 ==
LOC: ER 17:19 → ED HOLD 03-05 00:59 → PCU 3S 03-05 19:45
PROVIDERS: ADMIT Internal Medicine; ATTEND Internal Medicine
PROC: 0S9C3ZZ Drainage of Right Knee Joint, Percutaneous Approach (ICD-10-PCS; principal; 2022-03-04)
DX: M10.9 Gout, unspecified (principal); N17.9 Acute kidney failure, unspecified; E87.29 Other acidosis; D63.8 Anemia in other chronic diseases classified elsewhere; E83.51 Hypocalcemia; E87.8 Other disorders of electrolyte and fluid balance, not elsewhere classified; R77.1 Abnormality of globulin; M25.561 Pain in right knee; E66.01 Morbid (severe) obesity due to excess calories; R80.9 Proteinuria, unspecified; E87.5 Hyperkalemia; F15.90 Other stimulant use, unspecified, uncomplicated; I12.9 Hypertensive chronic kidney disease with stage 1 through stage 4 chronic kidney disease, or unspecified chronic kidney disease; N18.4 Chronic kidney disease, stage 4 (severe); Z88.8 Allergy status to other drugs, medicaments and biological substances; Z68.34 Body mass index [BMI] 34.0-34.9, adult; Z79.899 Other long term (current) drug therapy
CPT/HCPCS: 36415; 71045; 73560; 80048; 80053; 80202; 81001; 82570; 82575; 82945; 82948; 83605; 83735; 83970; 84100; 84145; 84156; 84157; 84550; 84560; 85025; 85651; 86140; 86160; 86803; 87040; 87070; 87081; 89051; 89060; 93005; 96365; 96367; 96375; 97110; 97116; 97161; 97530; 99285; G0378; J0360; J0610; J1644; J1815; J2543; J3370; J3490; J7030